=== PATIENT | male | born 1940 | race Caucasian/White ===

== ENCOUNTER 2020-02-02 03:21 | Outpatient (CLI) | payer MEDICARE, SELFPAY ==
[2020-02-02 18:37] LABS: SARS-CoV-2 RNA PCR Negative
== END 2020-02-02 03:22 | disposition home or self-care (01) ==
LOC: ANHCOVIDDT 03:38
PROVIDERS: PCP Internal Medicine; Visit Provider Internal Medicine Gastroenterology
DX: Z01.812 Encounter for preprocedural laboratory examination (principal); Z20.828 Contact with and (suspected) exposure to other viral communicable diseases
CPT/HCPCS: 87635; C9803; U0003

== ENCOUNTER 2020-02-04 00:38 | Day surgery (SDC) | payer MEDICARE, SELFPAY ==
[2020-01-25 14:46] VITALS: BMI 29.9
[2020-02-04 06:27] VITALS: BP 148/84; PULSE 45; RESP 16; TEMP 36.2; O2SAT 95
[2020-02-04] MEDS: LACTATED RINGERS 1,000 ML 150 ML IV CONT (06:40)
--- NOTE | 2020-02-04 07:15 | PM.HPGS ---
History of Present Illness History of Present Illness Consent: Risks, benefits, and alternatives have been discussed and questions answered. Patient agrees to proceed with procedure. Chief complaint: hx of polyps, family hx colon CA Narrative: Rei Lee is a 79 year old W male Referred for screening colonoscopy secondary to a personal history of multiple colonic polyps and a family history of colon cancer in his brother diagnosed less than age 60. Last colonoscopy was 3 years ago patient is asymptomatic. Meds Home Medications and Allergies Home Medications Medication Instructions Recorded Confirmed Type allopurinol 100 mg PO DAILY 01/25/20 01/25/20 History aspirin [Aspirin Low Dose] 81 mg PO DAILY 01/25/20 01/25/20 History levothyroxine 150 mcg PO DAILY 01/25/20 02/04/20 History meloxicam 7.5 mg PO DAILY 01/25/20 01/25/20 History omeprazole magnesium [Prilosec OTC] 20 mg PO DAILY 01/25/20 01/25/20 History simvastatin 10 mg PO DAILY 01/25/20 01/25/20 History tamsulosin [Flomax] 0.4 mg PO BID 01/25/20 01/25/20 History triamterene-hydrochlorothiazid 1 tablet PO QAM 01/25/20 01/25/20 History vitamins A,C,N-xbby-eomdgi 2 tablet PO BID 01/25/20 01/25/20 History [PreserVision AREDS] Allergies Allergy/AdvReac Type Severity Reaction Status Date / Time Sulfa (Sulfonamide Allergy Unknown Rash Verified 02/04/20 06:26 Antibiotics) tetracycline Allergy Unknown Rash Verified 02/04/20 06:26 nitrofurantoin Allergy Other Verified 02/04/20 06:26 Vital Signs Vital Signs - 24 hr 02/04/20 06:27 Temperature 36.2 C L Pulse Rate 45 L Respiratory Rate 16 Blood Pressure 148/84 H Pulse Oximetry 95 Exam Const: Orientation/consciousness: patient oriented x3 Resp: Auscultation: clear to auscultation bilaterally Cardio: Rate: regular rate Rhythm: regular rhythm Heart sounds: no murmurs GI: GI Palp: Yes Soft to palpation, No Tenderness to palpation present (GI), Yes No hepatosplenomegaly present and No Palpable mass present Auscultation: normal bowel sounds Neuro: General: patient oriented x3 and no focal motor deficits Extrem: General: no pedal edema Assessment and Plan Additional Plan Screening colonoscopy in high risk patient secondary to family history of colon cancer in a brother and a personal history of polyps
--- NOTE | 2020-02-04 07:17 | WPDANESEPPF ---
Anes - Initial Pre Proc Eval Procedure: Operation Date: 02/04/20 07:30 Proposed Procedures p Screening Colonoscopy - Jef Lala MD Date/Time: 02/04/20 07:17 Surgeon: Jef Lala MD Pre Op Diagnosis: hx of polyps, family hx colon CA Patient Data Age: 79 Gender: M Height: 6 ft Weight: 97 kg Last Vital Signs Temp 97.1 F L 02/04/20 06:27 Pulse 45 L 02/04/20 06:27 Resp 16 02/04/20 06:27 BP 148/84 H 02/04/20 06:27 Pulse Ox 95 02/04/20 06:27 Allergies Allergy/AdvReac Type Severity Reaction Status Date / Time Sulfa (Sulfonamide Allergy Unknown Rash Verified 02/04/20 06:26 Antibiotics) tetracycline Allergy Unknown Rash Verified 02/04/20 06:26 nitrofurantoin Allergy Other Verified 02/04/20 06:26 Home Medications Medication Instructions Recorded Confirmed Type allopurinol 100 mg PO DAILY 01/25/20 01/25/20 History aspirin [Aspirin Low Dose] 81 mg PO DAILY 01/25/20 01/25/20 History levothyroxine 150 mcg PO DAILY 01/25/20 02/04/20 History meloxicam 7.5 mg PO DAILY 01/25/20 01/25/20 History omeprazole magnesium [Prilosec OTC] 20 mg PO DAILY 01/25/20 01/25/20 History simvastatin 10 mg PO DAILY 01/25/20 01/25/20 History tamsulosin [Flomax] 0.4 mg PO BID 01/25/20 01/25/20 History triamterene-hydrochlorothiazid 1 tablet PO QAM 01/25/20 01/25/20 History vitamins A,C,U-ezwq-ulzuoy 2 tablet PO BID 01/25/20 01/25/20 History [PreserVision AREDS] Patient hx anesthesia problems: none Family hx anesthesia problems: none PMFSH Past Medical History Medical History (Updated 02/04/20 @ 07:17 by Erasto Wilson MD) H/O prostate cancer Hyperlipidemia Hypertension Anes - Eval Final PreProcedure Day of Procedure 02/04/20 07:17 Patient weight: overweight Heart: regular rate and rhythm Lungs: clear to auscultation Airway: Mallampati scale class II Neurological: alert and oriented Last oral intake: >/= 8 hours ASA classification: III Emergent: no Anesthetic plan: proceed Anesthesia type and monitoring: general GIVS and standard monitoring Informed Consent: The patient's anesthetic plan and its attendant risks and benefits were discussed with the patient/family/POA. Questions were solicited and answers provided to the satisfaction of the patient/family/POA.
[2020-02-04 07:59] VITALS: BP 94/62; PULSE 84; RESP 16; O2SAT 94
[2020-02-04 08:09] VITALS: BP 95/60; PULSE 81; RESP 16; O2SAT 93
[2020-02-04 08:19] VITALS: BP 118/74; PULSE 89; RESP 15; O2SAT 96
== END 2020-02-04 08:25 | disposition home or self-care (01) ==
PROVIDERS: PCP Internal Medicine; Visit Provider Internal Medicine Gastroenterology
PROC: 0DJD8ZZ Inspection of Lower Intestinal Tract, Via Natural or Artificial Opening Endoscopic (ICD-10-PCS; CPT 45378; principal; 2020-02-04 07:30)
DX: Z12.11 Encounter for screening for malignant neoplasm of colon (principal); D12.3 Benign neoplasm of transverse colon; K63.5 Polyp of colon; K57.30 Diverticulosis of large intestine without perforation or abscess without bleeding; K64.8 Other hemorrhoids; Z80.0 Family history of malignant neoplasm of digestive organs; I10 Essential (primary) hypertension; E78.5 Hyperlipidemia, unspecified; Z85.46 Personal history of malignant neoplasm of prostate; Z79.82 Long term (current) use of aspirin
CPT/HCPCS: 45385; 88305; J2370; J2704; J7120

== ENCOUNTER 2022-04-18 12:42 | Inpatient (IN) | payer MEDICARE, SELFPAY ==
[2022-04-18] VITALS (25 sets, daily range): BP systolic 116–141; BP diastolic 77–107; PULSE 92–119; RESP 14–20; TEMP 36.4; O2SAT 83–98; BMI 27.3; BMI 27.5
--- NOTE | ~2022-04-18 | XR_ITS ---
EXAMINATION: XR abdomen/kub 1V DATE: 04/20/2022 06:01 INDICATION: Small bowel obstruction. TECHNIQUE: A supine view of the abdomen on 2 radiographs was obtained. COMPARISON: CT abdomen and pelvis 04/18/2022 FINDINGS: There is a dilated loop of small bowel in right abdomen. The colon is decompressed. There i s a small volume of stool in the colon. The nasogastric tube tip is in the stomach. IMPRESSION: 1. Dilated small bowel in right abdomen, consistent with small bowel obstruction. Reviewed, dictated and finalized at location A. IFIED LOW VISION THERAPIST IMPRESSION: 1. Dilated small bowel in right abdomen, consistent with small bowel obstructio n.
--- NOTE | ~2022-04-18 | XR_ITS ---
EXAMINATION: XR sm bowel follow through WS DATE: 04/20/2022 10:22 INDICATION: Small bowel obstruction. TECHNIQUE: Oral contrast was administered, and a time course of radiographs of the abdomen was obtain ed. Fluoroscopy of the small bowel was not performed. Fluoroscopy exposure time was 0 minutes. The to ismael number of images was 6. COMPARISON: CT abdomen and pelvis 04/18/2022 FINDINGS: The nasogastric tube tip is in the stomach. There are dilated loops of jejunum. The ileum is normal i n caliber. Transit time from the stomach to proximal colon was approximately 1 hour and 45 minutes. T here are brachytherapy seeds in the prostate. IMPRESSION: 1. Dilated jejunum with normal transit time of contrast to the colon, consistent with adynamic ileus versus partial small bowel obstruction. Reviewed, dictated and finalized at location A. RONMENTAL PLANNING ENGINEER IMPRESSION: 1. Dilated jejunum with normal transit time of contrast to the colon, consisten t with adynamic ileus versus partial small bowel obstruction.
--- NOTE | ~2022-04-18 | CT_ITS ---
EXAMINATION: CT abdomen pelvis w con DATE: 04/18/2022 16:35 INDICATION: Left lower quadrant abdominal pain, nausea and vomiting, constipation. Leukocytosis. TECHNIQUE: Computed tomography (CT) of the abdomen and pelvis was performed with 100 CC Omnipaque 350 intravenous contrast. Automated exposure control and iterative reconstruction technique were employe d. Exam dose: 1093.19 mGy-cm total exam DLP. COMPARISON: None. FINDINGS: Mild bilateral lower lobe and right upper lobe dependent atelectasis. Ascending aortic aneurysm measures up to 4.3 cm diameter. Normal heart size. Prominent coronary artery calcifications. Prominent calcified mediastinal nodes. No hilar or mediastinal mass lesion or lymphadenopathy is evid ent. There are multiple small stones in the dependent aspect of the gallbladder. No gallbladder wall thick ening or pericholecystic fluid or fat stranding. No bile duct or pancreatic duct dilatation. No hepatic, pancreatic or splenic, adrenal space-occupying mass lesion. There are multiple bilateral renal cysts. Approximately 3.5 mm nonobstructing right renal calculus Urinary tract calculus or hydroureteronephrosis. Prostate enlargement and multiple prostate calcifications. There is moderate diffuse thickening of th e urinary bladder wall which may be secondary to prostate enlargement. The stomach is distended with fluid. There multiple small bowel segments with fluid distention and air-fluid levels, with a transition poi nt in the central pelvic area (series 3 image 164). There is mild free fluid in the lower pelvis. Normal appendix. Mild colonic diverticulosis. No CT evidence of diverticulitis. Severe degenerative disease of the lumbar and lumbosacral spine. Bilateral hip osteoarthritis, particularly severe on the left IMPRESSION: Small bowel obstruction with transition point in the central pelvis Small free fluid collection in the lower pelvis Normal appendix Bilateral renal cysts 3.5 mm nonobstructing right renal calculus Prostate enlargement and calcifications Cholelithiasis Reviewed, dictated and finalized at Location A. Reviewed, dictated and finalized at location A. PALLETIZER IMPRESSION: Small bowel obstruction with transition point in the central pelvi s Small free fluid collection in the lower pelvis Normal appendix Bilateral renal cysts 3.5 mm nonobstructing right renal calculus Prostate enlargement and calcifications Cholelithiasis
--- NOTE | ~2022-04-18 | XR_ITS ---
EXAMINATION: XR abdomen NG/feed tube insert INDICATION: Nasogastric tube placement TECHNIQUE: Portable AP KUB-NG at 1802 hours COMPARISON: None available FINDINGS: The nasogastric tube is in the stomach. Contrast from earlier CT partially opacifies the ur inary tract. There are mildly distended loops of small bowel in the midabdomen. There is severe lumba r spondylosis. IMPRESSION: 1. Nasogastric tube in the stomach. 2. Small bowel obstruction. Reviewed, dictated and finalized at location F. ER HELPER
--- NOTE | ~2022-04-18 | XR_ITS ---
EXAMINATION: XR abdomen obstructive series DATE: 04/19/2022 05:55 INDICATION: Small bowel obstruction. TECHNIQUE: Upright and supine views of the abdomen on 4 radiographs were obtained. COMPARISON: CT abdomen and pelvis 04/18/2022 FINDINGS: There are no dilated loops of bowel. There is a small volume of stool in the colon. No free intraperitoneal gas. The nasogastric tube tip is in the stomach. There are brachytherapy seeds in th e prostate. IMPRESSION: 1. Nonobstructive bowel gas pattern. Reviewed, dictated and finalized at location A. L MARKETING EXECUTIVE
[2022-04-18 13:06] LABS: Basophils Absolute Auto 0.1 K/mm3 (0.0-0.1); Basophils Percent Auto 0.5 % (0.2-1.2); Eosinophils Absolute Auto 0.1 K/mm3 (0-0.3); Eosinophils Percent Auto 0.7 % (0-4.4); Hematocrit 52.7 % (42.0-52.0); Hemoglobin 18.3 g/dL (14.0-18.0); Immature Granulocyte Absolute 0.14 K/mm3 (0.00-0.031); Lymphocytes Absolute Auto 0.91 K/mm3 (0.9-3.2); Lymphocytes Percent Auto 6.5 % (18.3-44.2); Mean Corpuscular HGB Conc 34.7 g/dl (32-36); Mean Corpuscular Hemoglobin 31.8 pg (26-34); Mean Corpuscular Volume 91.7 fl (80-100); Mean Platelet Volume 10.2 fl (7.4-10.4); Neutrophils Absolute Auto 11.9 K/mm3 (1.3-6.7); Neutrophils Percent Auto 84.3 % (45.5-73.1); Platelet Count Result 146 k/mm3 (150-375); Red Blood Count 5.75 M/mm3 (4.6-6.20); Red Cell Distribution Width 13.6 % (11.5-14.5); White Blood Count 14.1 K/mm3 (4.5-10.0)
[2022-04-18 13:21] LABS: Alanine Aminotransferase 28 U/L (6-50); Albumin Level 4.5 g/dL (3.5-5.1); Alkaline Phosphatase 62 U/L (38-126); Anion Gap 12 mmol/L (8-16); Aspartate Amino Transferase 24 U/L (17-59); Bilirubin,Total 1.5 mg/dL (0.2-1.3); Blood Urea Nitrogen 22 mg/dL (9-20); Calcium 9.9 mg/dL (8.4-10.2); Carbon Dioxide 29 mmol/L (22-30); Chloride 95 mmol/L (98-107); Estimated CRCL calculation 53 ml/min; Estimated Glomerular Filt Rate > 60; Glucose 201 mg/dL (65-110); Lipase 48 U/L (23-300); Potassium 3.9 mmol/L (3.4-5.0); Sodium 136 mmol/L (137-145)
[2022-04-18 14:39] LABS: Appearance Urine Clear (Clear); Bilirubin Urine 1+ (Negative); Blood Urine Negative (Negative); Color Urine Yellow (Yellow); Glucose Urine UA Negative (Negative); Ketones Urine 1+ mg/dL (Negative); Leukocyte Esterase Ur Negative LEU/UL (Negative); Nitrate Urine Negative (Negative); Protein Urine 2+ mg/dL (Negative); Specific Grav Ur >= 1.030 (1.001-1.035); Urobilinogen Urine 0.2 mg/dL (<2.0)
[2022-04-18 15:01] LABS: Bacteria Urine Trace /hpf; Mucus Urine Moderate /lpf; WBC Urine 21-30 /hpf
[2022-04-18 15:03] LABS: Add Urine Microscopic? YES
--- NOTE | 2022-04-18 15:56 | ED.ABDPAIN ---
HPI - Abdominal Pain General Chief Complaint: Abdominal Pain <NAOMI Hollingsworth Last Filed: 04/18/22 19:28> Stated Complaint: abd pain x3 days <NAOMI Hollingsworth Last Filed: 04/18/22 19:28> Time Seen by Provider: 04/18/22 14:48 <NAOMI Hollingsworth Last Filed: 04/18/22 19:28> Source: patient <NAOMI Hollingsworth Last Filed: 04/18/22 19:28> Mode of arrival: ambulatory <NAOMI Hollingsworth Last Filed: 04/18/22 19:28> Limitations: no limitations <NAOMI Hollingsworth Last Filed: 04/18/22 19:28> History of Present Illness HPI narrative: Patient is a 81 y/o male who presents to the ED with c/o abdominal pain. Patient reports having diffuse pain across his abdomen for the past several days. He notes he has been constipated for the past 4 days. Last BM Saturday. Today, he developed worsening pain and nausea and vomiting, which prompted his presentation. He has not taken anything for pain today. He has not tried any laxatives or bowel regimen. He denies any fevers. Denies hematemesis. Denies dysuria, hematuria. Patient has been taking Cipro for the last 2 days for sinus infection. He notes he tested positive for COVID-19 2 weeks ago. <NAOMI Hollingsworth Last Filed: 04/18/22 19:28> Related Data Home Medications: Home Medications Medication Instructions Recorded Confirmed allopurinol 100 mg tablet 100 mg PO DAILY 01/25/20 01/25/20 aspirin 81 mg tablet,delayed 81 mg PO DAILY 01/25/20 01/25/20 release (Jose Antonio Low Dose Aspirin) levothyroxine 150 mcg tablet 150 mcg PO DAILY 01/25/20 02/04/20 meloxicam 7.5 mg tablet 7.5 mg PO DAILY 01/25/20 01/25/20 omeprazole magnesium 20 mg 20 mg PO DAILY 01/25/20 01/25/20 tablet,delayed release (Prilosec OTC) simvastatin 10 mg tablet 10 mg PO DAILY 01/25/20 01/25/20 tamsulosin 0.4 mg capsule (Flomax) 0.4 mg PO BID 01/25/20 01/25/20 triamterene 37.5 1 tablet PO QAM 01/25/20 01/25/20 mg-hydrochlorothiazide 25 mg tablet vitamins A,C,K-imhi-dnxzpd 2,148 2 tablet PO BID 01/25/20 01/25/20 mcg-113 mg-45 mg-17.4 mg tablet (PreserVision AREDS) <Valarie Franklin PA-C - Last Filed: 04/18/22 19:28> Allergies/Adverse Reactions: Allergies Allergy/AdvReac Type Severity Reaction Status Date / Time Sulfa (Sulfonamide Allergy Unknown Rash Verified 04/18/22 15:18 Antibiotics) tetracycline Allergy Unknown Rash Verified 04/18/22 15:18 <Valarie Franklin PA-C - Last Filed: 04/18/22 19:28> Review of Systems Review of Systems: CONSTITUTIONAL: Denies fever, chills, or sweats. CARDIOVASCULAR: Denies chest pain. RESPIRATORY: Denies dyspnea. GASTROINTESTINAL: Reports diffuse abdominal pain, nausea, vomiting, constipation. Denies diarrhea, constipation. GENITOURINARY: Denies dysuria or hematuria. <Valarie Franklin PA-C - Last Filed: 04/18/22 19:28> All systems reviewed & are unremarkable except as noted in HPI and below <Valarie Franklin PA-C - Last Filed: 04/18/22 19:28> [facility] Past Medical History Medical History: Medical History (Updated 04/18/22 @ 18:07 by Valarie Franklin PA-C) Diverticulitis GERD (gastroesophageal reflux disease) Gout H/O prostate cancer Hyperlipidemia Hypertension <Valarie Franklin PA-C - Last Filed: 04/18/22 19:28> Surgical History Surgical History: Surgical History (Updated 04/18/22 @ 17:28 by Valarie Franklin PA-C) History of colectomy History of thyroidectomy <Valarie Franklin PA-C - Last Filed: 04/18/22 19:28> Social History Social History: Social History (Updated 04/18/22 @ 17:29 by Valarie Franklin PA-C) Smoking status: Never smoker <Valarie Franklin PA-C - Last Filed: 04/18/22 19:28> Exam Narrative: GENERAL: Well appearing, well-nourished, non-toxic, in no acute distress. HEAD: Normocephalic, atraumatic. NECK: Supple. No adenopathy, no masses. RESPIRAT
--- NOTE | 2022-04-18 16:14 | ECG_ITS ---
Measurements Intervals [place] Rate: 102 P: 9 WV: 156 QRS: -5 QRSD: 113 T: 57 QT: 372 QTc: 486 Interpretive Statements SINUS TACHYCARDIA FREQUENT VENTRICULAR PREMATURE COMPLEXES DELAYED PRECORDIAL R/S TRANSITION NONSPECIFIC ST & T-WAVE ABNORMALITY- DIFFUSE LEADS BASELINE ARTIFACT- I, II, III, AVR, AVL, AVF, V3 ABNORMAL ECG NO PREVIOUS ECG AVAILABLE FOR COMPARISON Electronically Signed On 04-18-2022 17:29:00 BUSINESS SUPERVISOR by Lyndon Reyes D.O.
[2022-04-18] MEDS: MORPHINE SULFATE (*CRX) 4 MG/ML INJ IV PUSH (16:15)
[2022-04-18] MEDS: ONDANSETRON INJ 4 MG/2 ML VIAL IV PUSH (16:16)
[2022-04-18] MEDS: SODIUM CHLORIDE 0.9% IV 1,000 ML 999 ML IV CONT (16:16)
[2022-04-18 17:58] LABS: Lactic Acid Reflex 1.5 mmol/L (0.7-2.0)
--- NOTE | 2022-04-18 18:45 | PM.IMHP ---
H&P: HPI History of Present Illness Date/Time: 04/18/22 18:45 Chief Complaint: Abdominal pain. Narrative: This is a very pleasant 81-year-old male with history of hypertension, hyperlipidemia, benign prostatic hyperplasia, hypothyroidism, kidney stones, colon polyps, and history of diverticulitis status post partial colectomy who presented to the emergency department from home for evaluation of abdominal pain. He had COVID a couple of weeks ago while he and his for in [place] putting there winter home on the market. A couple of days ago they drove home and he was having some diffuse, mild abdominal discomfort at that time and he remarks that he has not had a good bowel movement for about 4 days. Yesterday while on packing he was feeling a bit nauseated so he took some Pepcid though that did not help. Last night he slept poorly due to the discomfort and this morning his pain became severe associated with sweats and nausea. He induced vomiting multiple times which seemed to improve the pain only for a small period of time before returned. CT of the abdomen and pelvis today showed evidence of a small-bowel obstruction and an NG tube has since been inserted which yielded almost 1 liter of yellow/brown fluid. He is feeling a bit better at this time. He did have part of his colon removed due to diverticulitis over 20 years ago though he has never had a bowel obstruction in the past. Colon cancer runs in the family and he has a history of colon polyps and he is compliant with colonoscopy screening at frequent intervals. His weight has remained stable and he has not noticed any blood in his stools. Review of Systems Review of Systems: Twelve systems were reviewed. He had COVID a couple of weeks ago though symptoms have resolved. He denies chest pain shortness a breath. No cough. He has not had a bowel movement for about 4 days. He gets up 1 to 2 times a night to urinate. He remarks that his stream is slower than when he was young man however he has not noticed any change in that for years. He denies concerns for urinary retention. He has not been experiencing dysuria. Except as documented, all other systems were reviewed and are negative. [facility] Past Medical History Medical History (Updated 04/18/22 @ 23:58 by Yolie Kim PA-C) Acquired hypothyroidism Benign prostatic hyperplasia Diverticulitis Gastroesophageal reflux disease Hyperlipidemia Hypertension Left leg DVT Following surgery in 2001. 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 Prostate cancer Status post radiation. Psoriasis Rhinosinusitis Uric acid nephrolithiasis Surgical History Surgical History (Updated 04/18/22 @ 23:53 by Yolie Kim PA-C) History of Mohs micrographic surgery for skin cancer (2009) Excision of melanoma of the right forearm. History of partial colectomy (2001) For diverticulitis. History of sinus surgery History of total thyroidectomy (2010) For benign nodules. Family History Family History (Updated 04/18/22 @ 23:54 by Yolie Kim PA-C) Father Congestive heart failure Mother Bone cancer Sibling , at age 54. Colon cancer Sibling Breast cancer Social History Social History (Updated 04/18/22 @ 23:55 by Yolie Kim PA-C) Social History: Surrogate medical decision maker: Love Lee, spouse. Code status: Full code. Smoking status: Former smoker Alcohol intake: never Substance use: never Substance use type: does not use Lack of Transportation: No Lack of Food: Never True Current Housing: I Have Housing Concerned About Future Housing: No Difficulty Paying Gas/Electric Bills: No Difficulty Paying for Meds: No Currently Unemployed: No Education: Decline to Answer Difficulty w/ Childcare or Family Care: No Additional living arrangements comments: The patient lives with his in [place]. Additional occ
[2022-04-18 19:53] LABS: Influenza A QL RT-PCR Negative (Negative); Influenza B QL RT-PCR Negative (Negative); SARS-CoV-2 RNA PCR Positive
--- NOTE | 2022-04-18 20:44 | PC.NURSE ---
report received from Chasidy hussein RN.
[2022-04-18] MEDS: SODIUM CHLORIDE 0.9% IV 1,000 ML 100 ML IV CONT (21:09)
[2022-04-19] MEDS: diphenhydrAMINE HCl INJ 50 MG/ML VIAL 12.5 MG IV PUSH (02:56)
[2022-04-19] MEDS: LEVOTHYROXINE SODIUM INJ 100 MCG/5 ML VIAL 75 MCG IV PUSH (05:17)
--- NOTE | 2022-04-19 05:18 | ADMGEN ---
This patient, Rei Lee, was admitted to 3 [facility] Surg Room 312-01. Patient/family oriented to hospital policies and general routines including ID bracelet, bed and alarms, visiting hours, pain management, procedures, bathroom and other care routines, personal items, smoking policy, room service/diet, and visiting hours. Information on how to activate the Rapid Response Team has been discussed. Patient/Family are encouraged to report perceived risks to care and to ask questions if they do not understand what they are told or what they should do. Pt arrived at [id number] report received from Chasidy ED RN 's cell phone [phone]
--- NOTE | 2022-04-19 05:19 | PC.NURSE ---
Addendum entered by Sheela Mcneal RN 04/19/22 05:20: error Original Note: 's cell phone [phone]
--- NOTE | 2022-04-19 05:20 | PC.NURSE ---
wifes cell phone [phone]
[2022-04-19 06:00] VITALS: BP 122/77; PULSE 79; RESP 18; TEMP 37; O2SAT 95
--- NOTE | 2022-04-19 06:33 | PC.NURSE ---
ng 250 out this shift noc
[2022-04-19 07:02] LABS: Hematocrit 46.5 % (42.0-52.0); Hemoglobin 15.9 g/dL (14.0-18.0); Mean Corpuscular HGB Conc 34.2 g/dl (32-36); Mean Corpuscular Hemoglobin 32.2 pg (26-34); Mean Corpuscular Volume 94.1 fl (80-100); Mean Platelet Volume 10.6 fl (7.4-10.4); Platelet Count Result 140 k/mm3 (150-375); Red Blood Count 4.94 M/mm3 (4.6-6.20); Red Cell Distribution Width 13.7 % (11.5-14.5); White Blood Count 8.6 K/mm3 (4.5-10.0)
[2022-04-19 07:12] LABS: Alanine Aminotransferase 22 U/L (6-50); Albumin Level 3.7 g/dL (3.5-5.1); Alkaline Phosphatase 40 U/L (38-126); Anion Gap 12 mmol/L (8-16); Aspartate Amino Transferase 24 U/L (17-59); Bilirubin,Total 1.1 mg/dL (0.2-1.3); Blood Urea Nitrogen 25 mg/dL (9-20); Calcium 8.7 mg/dL (8.4-10.2); Carbon Dioxide 28 mmol/L (22-30); Chloride 98 mmol/L (98-107); Estimated CRCL calculation 53 ml/min; Estimated Glomerular Filt Rate > 60; Glucose 127 mg/dL (65-110); Magnesium 1.7 mg/dL (1.6-2.3); Potassium 3.8 mmol/L (3.4-5.0); Sodium 138 mmol/L (137-145)
[2022-04-19] MEDS: SODIUM CHLORIDE 0.9% IV 1,000 ML 100 ML IV CONT ×2 (09:54→20:22)
[2022-04-19] MEDS: PANTOPRAZOLE SODIUM IV 40 MG VIAL IV PUSH ×2 (09:54→20:22)
--- NOTE | 2022-04-19 10:44 | PM.IMPN ---
Progress Note: A&P Assessment and Plan (1) Small bowel obstruction: Code(s): K56.609 - Unspecified intestinal obstruction, unspecified as to partial versus complete obstruction Status: Acute Assessment and Plan: He was found to have a small-bowel obstruction with transition point in the central pelvis. Possibly related to adhesions from prior partial colectomy for diverticulitis years ago. NG tube has been inserted for decompression and he will be on bowel rest. Surgery has been consulted for their opinion. Analgesics and antiemetics available as needed. (2) Abnormal urinalysis: Code(s): R82.90 - Unspecified abnormal findings in urine Status: Acute Assessment and Plan: He has been started on ceftriaxone, pending urine culture. (3) Dehydration: Code(s): E86.0 - Dehydration Status: Acute Assessment and Plan: Continue judicious IV fluid rehydration with close monitoring of volume status. (4) Benign prostatic hyperplasia: Code(s): N40.0 - Benign prostatic hyperplasia without lower urinary tract symptoms Status: Acute Assessment and Plan: Prostate was noted to be enlarged with calcifications on CT today. He is status post radiation therapy for prostate cancer several years ago. He continues to have issues with nocturia, 1 to 2 times a night. Resume tamsulosin when tolerating p.o.. (5) Hypertension: Code(s): I10 - Essential (primary) hypertension Status: Acute Assessment and Plan: Blood pressures were reviewed and they have been reasonable. Monitor closely as antihypertensives are on hold given NPO status. (6) Uric acid nephrolithiasis: Code(s): N20.0 - Calculus of kidney Status: Acute Assessment and Plan: Resume allopurinol when tolerating p.o.. (7) Acquired hypothyroidism: Code(s): E03.9 - Hypothyroidism, unspecified Status: Acute Assessment and Plan: He will continue to receive levothyroxine in IV form. (8) Gastroesophageal reflux disease: Code(s): K21.9 - Gastro-esophageal reflux disease without esophagitis Status: Acute Assessment and Plan: Change omeprazole to IV Protonix while NPO. Subjective Date/time seen: 04/19/22 10:[address] Abdominal pain improved Exam Const: Other: Mildly ill-appearing gentleman in the semi-Padgett position in bed. Weight: 92 kilograms. BMI: 27.5. HENMT: Other: Normocephalic, atraumatic. NG tube in the left naris draining opaque yellow/brown fluid with scattered cream color particulate matter. Tacky mucous membranes. Eyes: Other: Pupils are reactive. Extraocular motions intact. Sclerae anicteric. Neck: Other: Supple. Resp: Other: Respirations are nonlabored. Lungs are clear to auscultation bilaterally. Cardio: Other: Regular rate rhythm with normal S1-S2. GI: Other: Abdomen is soft and a bit distended. Quiet bowel sounds. He is tender to palpation percussion throughout the abdomen but more so on the right side. No guarding or rebound tenderness. Skin: Other: Warm and dry. No rash or lesion on limited exam. Neuro: Other: Alert. Cranial nerves 2-12 are grossly intact. No gross focal deficits to casual conversation. Extrem: Other: No cyanosis, clubbing, or edema. Left leg is bigger when compared to the right which is chronic following DVT many years ago. Peripheral pulses intact. Psych: Other: Pleasant and cooperative. Appropriate mood and affect. Objective Data Vital Signs Vital Signs: Vital Signs - 24 hr 04/18/22 12:50 04/18/22 15:21 04/18/22 15:17 Temperature 97.6 F Pulse Rate 100 113 H 114 H Respiratory Rate 18 16 20 Blood Pressure 141/83 H 130/97 H 130/97 H Pulse Oximetry 97 93 97 Oxygen Delivery Room Air 04/18/22 15:19 04/18/22 15:30 04/18/22 15:32 Temperature Pulse Rate 113 H 115 H 119 H Respiratory Rate 18 18 17 Blood Pressure 132/95
[2022-04-19 14:00] VITALS: BP 124/85; PULSE 83; RESP 16; TEMP 36.4; O2SAT 99
--- NOTE | 2022-04-19 17:04 | PM.CNGS ---
Assessment and Plan Assessment and plan (1) Small bowel obstruction: Code(s): K56.609 - Unspecified intestinal obstruction, unspecified as to partial versus complete obstruction Status: Acute Assessment and Plan: Improving symptomatically as well as by imaging. He still has some tenderness in the right lower quadrant. Continue NG suction today. Recheck plain films tomorrow and exam as well as labs. Possibly go ahead with small-bowel series tomorrow. Thank you for asking me to see this patient in consultation. I will follow along with you. (2) History of colectomy: Code(s): Z90.49 - Acquired absence of other specified parts of digestive tract Status: Chronic Assessment and Plan: History sigmoidectomy for diverticulitis 21 years ago. History of Present Illness Consult details Consult date: 04/19/22 Reason for consult: abdominal pain (Small bowel obstruction) Requesting physician: Walter Espinal MD Narrative: Patient is a 81-year-old man who had a sigmoidectomy just over 20 years ago for diverticular disease. He and his drove back from [place] on Saturday and Saturday and then on Saturday he started experiencing diffuse abdominal pain. He has also had sweats and nausea. He came to the emergency room yesterday and evaluation there included a CT scan which showed small-bowel obstruction with a transition point in the pelvis. He had a nasogastric tube placed in apparently 2 full canisters drained almost immediately. He has been admitted and nasogastric tube is still in place. His pain is much better but not gone. He is seen now in consultation regarding small-bowel obstruction. He has never had a small bowel obstruction previously. He is also noticing some dysuria and some blood in his urine. Urinalysis in the ER was suspicious for UTI. Review of Systems Review of Systems: All systems reviewed & are unremarkable except as noted in HPI and below (HPI and those items noted below) Constitutional: Constitutional: Denies chills and Denies fever(s) Cardiovascular: Cardiovascular: Denies chest pain, Denies diaphoresis, Denies dyspnea and Denies paroxysmal nocturnal dyspnea Respiratory: Respiratory: Denies chest congestion, Denies cough and Denies dyspnea Integumentary/Breasts: Skin/Breast: Denies lesions and Denies rash PMFSH Past Medical History Medical History Acquired hypothyroidism Benign prostatic hyperplasia Diverticulitis Gastroesophageal reflux disease Hyperlipidemia Hypertension Left leg DVT Following surgery in 2001. 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 Prostate cancer Status post radiation. Psoriasis Rhinosinusitis Uric acid nephrolithiasis Surgical History Surgical History History of Mohs micrographic surgery for skin cancer (2009) Excision of melanoma of the right forearm. History of partial colectomy (2001) For diverticulitis. History of sinus surgery History of total thyroidectomy (2010) For benign nodules. Family History Family History Father Congestive heart failure Mother Bone cancer Sibling , at age 54. Colon cancer Sibling Breast cancer Social History Social History Social History: Surrogate medical decision maker: Love Lee, spouse. Code status: Full code. Smoking status: Former smoker Alcohol intake: never Substance use: never Substance use type: does not use Lack of Transportation: No Lack of Food: Never True Current Housing: I Have Housing Concerned About Future Housing: No Difficulty Paying Gas/Electric Bills: No Difficulty Paying for Meds: No Currently Unemployed: No Education: Decline to Answer Difficulty w/ Childcare
[2022-04-19 19:44] VITALS: O2SAT 97
[2022-04-19 22:57] VITALS: BP 123/85; PULSE 82; RESP 16; TEMP 36.2; O2SAT 94
--- NOTE | 2022-04-20 05:30 | PC.NURSE ---
650 ml NG output this shift
[2022-04-20] MEDS: LEVOTHYROXINE SODIUM INJ 100 MCG/5 ML VIAL 75 MCG IV PUSH (05:34)
[2022-04-20 06:00] VITALS: BP 150/90; PULSE 69; RESP 18; TEMP 36.4; O2SAT 96
[2022-04-20] MEDS: SODIUM CHLORIDE 0.9% IV 1,000 ML 100 ML IV CONT ×2 (06:14→16:03)
--- NOTE | 2022-04-20 07:26 | PM.PNGS ---
Progress Note: A&P Assessment and Plan (1) Small bowel obstruction: Code(s): K56.609 - Unspecified intestinal obstruction, unspecified as to partial versus complete obstruction Status: Acute Assessment and Plan: definitely improved. Will go ahead and get Gastrografin small-bowel follow-through today. I explained the test to the patient. Hopefully this will pass through with relatively normal transit. If so can DC NG and start some liquids. (2) Abnormal urinalysis: Code(s): R82.90 - Unspecified abnormal findings in urine Status: Acute Assessment and Plan: Urine culture negative. Can stop try ceftriaxone from my perspective. Subjective Subjective Date/Time Seen: 04/20/22 07:26 Patient reports: feels better, pain is less, flatus and no bowel movement Review of Systems Review of Systems: All systems reviewed & are unremarkable except as noted in HPI and below ( HPI) Constitutional: Constitutional: Denies chills and Denies fever(s) Cardiovascular: Cardiovascular: Denies chest pain, Denies diaphoresis, Denies dyspnea, Denies paroxysmal nocturnal dyspnea and Reports other ( mild discomfort upper abdomen lower chest, no sharp pain no shortness of b) Respiratory: Respiratory: Denies chest congestion, Denies cough and Denies dyspnea Integumentary/Breasts: Skin/Breast: Denies lesions and Denies rash Exam Const: General: comfortable and no acute distress; No confusion Orientation/consciousness: patient oriented x3 and No confusion Chest: Chest palpation & inspection: normal palpation of entire chest wall, no crepitus and no localized rib tenderness Resp: Effort & Inspection: normal respiratory effort Auscultation: clear to auscultation bilaterally Cardio: Rate: regular rate Rhythm: regular rhythm GI: Inspection: non-distended and scar GI Palp: Yes Soft to palpation, No Tenderness to palpation present (GI) ( Right lower quadrant tenderness gone today.), No Guarding due to palpation present (GI) and No Rebound tenderness present Auscultation: Hypoactive bowel sounds present Neuro: General: patient oriented x3, no focal motor deficits and No confusion Extrem: General: no calf tenderness and no edema Psych: Affect: normal affect Insight: Good insight present (Psych) Judgement: Good judgement present (Psych) Objective Data Vital Signs Vital Signs: Vital Signs - 24 hr 04/19/22 08:35 04/19/22 14:00 04/19/22 19:44 Temperature 36.4 C L Pulse Rate 83 Respiratory Rate 16 Blood Pressure 124/85 Pulse Oximetry 99 97 Oxygen Delivery Room Air Room Air 04/19/22 22:57 Temperature 36.2 C L Pulse Rate 82 Respiratory Rate 16 Blood Pressure 123/85 Pulse Oximetry 94 Oxygen Delivery Intake/Output Intake/Output: Intake & Output 04/17/22 04/18/22 04/19/22 04/20/22 23:59 23:59 23:59 23:59 Intake Total 1000 2200 1050 Output Total 950 Balance 1000 1250 1050 Meds/Results Medications: Active Medications Generic Name Dose Route Start Last Admin Trade Name Freq PRN Reason Stop Dose Admin Sodium Chloride 1,000 mls @ 100 mls/hr 04/18/22 18:10 04/20/22 06:14 Normal Saline Iv IV CONT 100 mls/hr .Q10H ALEKSANDER Administration Ceftriaxone Sodium/Dextrose 1 gm in 50 mls @ 100 mls/hr 04/19/22 01:00 04/20/22 01:00 Rocephin 1 Gm/D5w 50 Ml IVPB Infused Q24H ALEKSANDER Infusion Levothyroxine Sodium 75 mcg 04/19/22 06:30 04/20/22 05:34 Levothyroxine Sodium Inj 100 Mcg/5 Ml Vial IV PUSH 75 mcg DAILY@0630 ALEKSANDER Administration Morphine Sulfate 2 mg 04/19/22 00:02 Morphine Sulfate (*Crx) 4 Mg/Ml Inj IV PUSH Q4H PRN Pain Rated 7-10 Ondansetron HCl 4 mg 04/18/22 18:07 Ondansetron Inj 4 Mg/2 Ml Vial IV PUSH Q4H PRN Nausea Pantoprazole Sodium 40 mg 04/19/22 09:00 04/19/22 20:22 Pantoprazole Sodium Iv 40 Mg Vial IV PUSH 40 mg Q12HR ALEKSANDER Administration Radiology Results: ITS Impressions Abdomen/Pel
[2022-04-20 07:51] LABS: Basophils Absolute Auto 0.1 K/mm3 (0.0-0.1); Basophils Percent Auto 0.8 % (0.2-1.2); Eosinophils Absolute Auto 0.2 K/mm3 (0-0.3); Eosinophils Percent Auto 3.1 % (0-4.4); Hematocrit 44.7 % (42.0-52.0); Hemoglobin 15.2 g/dL (14.0-18.0); Immature Granulocyte Absolute 0.06 K/mm3 (0.00-0.031); Immature Granulocyte Percent A 0.8 % (0-0.5); Lymphocytes Absolute Auto 0.75 K/mm3 (0.9-3.2); Lymphocytes Percent Auto 9.8 % (18.3-44.2); Mean Corpuscular Hemoglobin 31.6 pg (26-34); Mean Corpuscular Volume 92.9 fl (80-100); Mean Platelet Volume 10.3 fl (7.4-10.4); Monocytes Absolute Auto 0.8 K/mm3 (0.1-0.6); Neutrophils Absolute Auto 5.7 K/mm3 (1.3-6.7); Neutrophils Percent Auto 74.5 % (45.5-73.1); Platelet Count Result 115 k/mm3 (150-375); Red Blood Count 4.81 M/mm3 (4.6-6.20); Red Cell Distribution Width 13.9 % (11.5-14.5); White Blood Count 7.6 K/mm3 (4.5-10.0)
[2022-04-20 08:04] LABS: Anion Gap 11 mmol/L (8-16); Blood Urea Nitrogen 23 mg/dL (9-20); Calcium 8.1 mg/dL (8.4-10.2); Carbon Dioxide 26 mmol/L (22-30); Chloride 102 mmol/L (98-107); Estimated CRCL calculation 58 ml/min; Estimated Glomerular Filt Rate > 60; Glucose 86 mg/dL (65-110); Potassium 3.3 mmol/L (3.4-5.0); Sodium 139 mmol/L (137-145)
[2022-04-20] MEDS: PANTOPRAZOLE SODIUM IV 40 MG VIAL IV PUSH (09:16)
[2022-04-20] MEDS: ENOXAPARIN 40 MG/0.4 ML SYRINGE SUB-Q (09:21)
--- NOTE | 2022-04-20 11:26 | PM.IMPN ---
Progress Note: A&P Assessment and Plan (1) Small bowel obstruction: Code(s): K56.609 - Unspecified intestinal obstruction, unspecified as to partial versus complete obstruction Status: Acute Assessment and Plan: NG tube in place. Small-bowel follow-through pending feels better, pain control. DC antibiotics (2) Abnormal urinalysis: Code(s): R82.90 - Unspecified abnormal findings in urine Status: Acute Assessment and Plan: culture negative DC antibiotics (3) Dehydration: Code(s): E86.0 - Dehydration Status: Acute Assessment and Plan: Continue judicious IV fluid rehydration with close monitoring of volume status. (4) Benign prostatic hyperplasia: Code(s): N40.0 - Benign prostatic hyperplasia without lower urinary tract symptoms Status: Acute Assessment and Plan: Prostate was noted to be enlarged with calcifications on CT today. He is status post radiation therapy for prostate cancer several years ago. He continues to have issues with nocturia, 1 to 2 times a night. Resume tamsulosin when tolerating p.o.. (5) Hypertension: Code(s): I10 - Essential (primary) hypertension Status: Acute Assessment and Plan: Blood pressures were reviewed and they have been reasonable. Monitor closely as antihypertensives are on hold given NPO status. (6) Uric acid nephrolithiasis: Code(s): N20.0 - Calculus of kidney Status: Acute Assessment and Plan: Resume allopurinol when tolerating p.o.. (7) Acquired hypothyroidism: Code(s): E03.9 - Hypothyroidism, unspecified Status: Acute Assessment and Plan: He will continue to receive levothyroxine in IV form. (8) Gastroesophageal reflux disease: Code(s): K21.9 - Gastro-esophageal reflux disease without esophagitis Status: Acute Assessment and Plan: Change omeprazole to IV Protonix while NPO. Subjective Date/time seen: 04/20/22 11:26 no new complaints Exam Const: Other: Mildly ill-appearing gentleman in the semi-Padgett position in bed. Weight: 92 kilograms. BMI: 27.5. HENMT: Other: Normocephalic, atraumatic. NG tube in the left naris draining opaque yellow/brown fluid with scattered cream color particulate matter. Tacky mucous membranes. Eyes: Other: Pupils are reactive. Extraocular motions intact. Sclerae anicteric. Neck: Other: Supple. Resp: Other: Respirations are nonlabored. Lungs are clear to auscultation bilaterally. Cardio: Other: Regular rate rhythm with normal S1-S2. GI: Other: Abdomen is soft and a bit distended. Quiet bowel sounds. He is tender to palpation percussion throughout the abdomen but more so on the right side. No guarding or rebound tenderness. Skin: Other: Warm and dry. No rash or lesion on limited exam. Neuro: Other: Alert. Cranial nerves 2-12 are grossly intact. No gross focal deficits to casual conversation. Extrem: Other: No cyanosis, clubbing, or edema. Left leg is bigger when compared to the right which is chronic following DVT many years ago. Peripheral pulses intact. Psych: Other: Pleasant and cooperative. Appropriate mood and affect. Objective Data Vital Signs Vital Signs: Vital Signs - 24 hr 04/19/22 14:00 04/19/22 19:44 04/19/22 22:57 Temperature 97.5 F L 97.2 F L Pulse Rate 83 82 Respiratory Rate 16 16 Blood Pressure 124/85 123/85 Pulse Oximetry 99 97 94 Oxygen Delivery Room Air 04/20/22 06:00 Temperature 97.6 F Pulse Rate 69 Respiratory Rate 18 Blood Pressure 150/90 H Pulse Oximetry 96 Oxygen Delivery Intake/Output Intake/Output: Intake & Output 04/17/22 04/18/22 04/19/22 04/20/22 23:59 23:59 23:59 23:59 Intake Total 1000 2200 1050 Output Total 950 Balance 1000 1250 1050 Meds/Results Medications: Active Medications Generic Name Dose Route Start Last Admin Trade Name Freq PRN Reason
[2022-04-20 14:00] VITALS: BP 122/85; PULSE 90; RESP 16; TEMP 36.6; O2SAT 96
[2022-04-20] MEDS: KCL 40 MEQ/D5/0.9% SOD CHL 1,000 ML 60 ML IV CONT (18:28)
[2022-04-20] MEDS: TAMSULOSIN HCL 0.4 MG CAPSULE PO (18:29)
[2022-04-20] MEDS: allopurinoL 100 MG TABLET PO (18:29)
[2022-04-20] MEDS: POTASSIUM CHLORIDE 20 MEQ TABLET.ER PO (18:29)
[2022-04-20] MEDS: ACETAMINOPHEN 500 MG TABLET PO (21:42)
[2022-04-20] MEDS: diphenhydrAMINE HCl CAP 25 MG CAPSULE PO (21:42)
[2022-04-20 22:00] VITALS: BP 131/76; PULSE 79; RESP 18; TEMP 36.9; O2SAT 96
[2022-04-21 06:00] VITALS: BP 120/85; PULSE 60; RESP 20; TEMP 36.2; O2SAT 96
[2022-04-21 06:58] LABS: Basophils Absolute Auto 0.1 K/mm3 (0.0-0.1); Basophils Percent Auto 1.1 % (0.2-1.2); Eosinophils Absolute Auto 0.3 K/mm3 (0-0.3); Eosinophils Percent Auto 5.3 % (0-4.4); Hematocrit 42.6 % (42.0-52.0); Hemoglobin 14.4 g/dL (14.0-18.0); Immature Granulocyte Absolute 0.06 K/mm3 (0.00-0.031); Immature Granulocyte Percent A 1.1 % (0-0.5); Immature Platelet Fraction Pct 2.6 % (0.9-11.2); Lymphocytes Absolute Auto 0.79 K/mm3 (0.9-3.2); Lymphocytes Percent Auto 14.4 % (18.3-44.2); Mean Corpuscular HGB Conc 33.8 g/dl (32-36); Mean Corpuscular Hemoglobin 32.4 pg (26-34); Mean Corpuscular Volume 95.7 fl (80-100); Mean Platelet Volume 9.7 fl (7.4-10.4); Monocytes Absolute Auto 0.7 K/mm3 (0.1-0.6); Monocytes Percent Auto 12.2 % (2.6-8.5); Neutrophils Absolute Auto 3.6 K/mm3 (1.3-6.7); Neutrophils Percent Auto 65.9 % (45.5-73.1); Platelet Count Result 120 k/mm3 (150-375); Red Blood Count 4.45 M/mm3 (4.6-6.20); Red Cell Distribution Width 13.8 % (11.5-14.5); White Blood Count 5.5 K/mm3 (4.5-10.0)
[2022-04-21] MEDS: LEVOTHYROXINE SODIUM 150 MCG TABLET PO (06:58)
[2022-04-21 07:09] LABS: Anion Gap 6 mmol/L (8-16); Blood Urea Nitrogen 20 mg/dL (9-20); Calcium 7.9 mg/dL (8.4-10.2); Carbon Dioxide 26 mmol/L (22-30); Chloride 107 mmol/L (98-107); Estimated CRCL calculation 58 ml/min; Estimated Glomerular Filt Rate > 60; Glucose 134 mg/dL (65-110); Potassium 4.1 mmol/L (3.4-5.0); Sodium 139 mmol/L (137-145)
[2022-04-21] MEDS: allopurinoL 100 MG TABLET PO (08:40)
[2022-04-21] MEDS: TAMSULOSIN HCL 0.4 MG CAPSULE PO (08:40)
[2022-04-21] MEDS: TRIAMTERENE 37.5 MG/HCTZ 25 MG (MAXZIDE) TABLET 1 TAB PO (08:40)
[2022-04-21] MEDS: POTASSIUM CHLORIDE 20 MEQ TABLET.ER PO (08:41)
[2022-04-21] MEDS: ENOXAPARIN 40 MG/0.4 ML SYRINGE SUB-Q (08:41)
[2022-04-21] MEDS: MELOXICAM 7.5 MG TABLET PO (08:42)
[2022-04-21] MEDS: PANTOPRAZOLE 40 MG TABLET PO (08:42)
--- NOTE | 2022-04-21 11:39 | PM.DS ---
DS: Admitting Diagnosis Discharge Date April 21, 2022 Admitting Diagnosis small-bowel obstruction DS: Discharge Diagnosis Discharge Diagnosis (1) Small bowel obstruction: Code(s): K56.609 - Unspecified intestinal obstruction, unspecified as to partial versus complete obstruction Status: Acute Assessment and Plan: resolved (2) Abnormal urinalysis: Code(s): R82.90 - Unspecified abnormal findings in urine Status: Acute Assessment and Plan: culture negative DC antibiotics (3) Dehydration: Code(s): E86.0 - Dehydration Status: Acute Assessment and Plan: Continue judicious IV fluid rehydration with close monitoring of volume status. (4) Benign prostatic hyperplasia: Code(s): N40.0 - Benign prostatic hyperplasia without lower urinary tract symptoms Status: Acute Assessment and Plan: Prostate was noted to be enlarged with calcifications on CT today. He is status post radiation therapy for prostate cancer several years ago. He continues to have issues with nocturia, 1 to 2 times a night. Resume tamsulosin when tolerating p.o.. (5) Hypertension: Code(s): I10 - Essential (primary) hypertension Status: Acute Assessment and Plan: Blood pressures were reviewed and they have been reasonable. Monitor closely as antihypertensives are on hold given NPO status. (6) Uric acid nephrolithiasis: Code(s): N20.0 - Calculus of kidney Status: Acute Assessment and Plan: Resume allopurinol when tolerating p.o.. (7) Acquired hypothyroidism: Code(s): E03.9 - Hypothyroidism, unspecified Status: Acute Assessment and Plan: He will continue to receive levothyroxine in IV form. (8) Gastroesophageal reflux disease: Code(s): K21.9 - Gastro-esophageal reflux disease without esophagitis Status: Acute Assessment and Plan: Change omeprazole to IV Protonix while NPO. DS: Summary Hospital Course Hospital Course: patient is a 81-year-old gentleman history of abdominal surgeries. He came in with nausea vomiting and abdominal cramping. Was found have small-bowel obstruction on imaging. He had an NG tube placed and was treated conservatively. NG tube was pulled yesterday and has been tolerating liquid diet and has been advanced to soft diet in appears to be eating just fine. He is also passing gas and having bowel movements. Repeat small-bowel follow-through showed that he no longer had no obstruction. Again he is tolerating diet he can be discharged and he will follow up with surgery as an outpatient Time Spent with Patient Time attestation: Total time spent providing and/or coordinating discharge services: Exam Const: Other: Mildly ill-appearing gentleman in the semi-Padgett position in bed. Weight: 92 kilograms. BMI: 27.5. HENMT: Other: Normocephalic, atraumatic. NG tube in the left naris draining opaque yellow/brown fluid with scattered cream color particulate matter. Tacky mucous membranes. Eyes: Other: Pupils are reactive. Extraocular motions intact. Sclerae anicteric. Neck: Other: Supple. Resp: Other: Respirations are nonlabored. Lungs are clear to auscultation bilaterally. Cardio: Other: Regular rate rhythm with normal S1-S2. GI: Other: Abdomen is soft and a bit distended. Quiet bowel sounds. He is tender to palpation percussion throughout the abdomen but more so on the right side. No guarding or rebound tenderness. Skin: Other: Warm and dry. No rash or lesion on limited exam. Neuro: Other: Alert. Cranial nerves 2-12 are grossly intact. No gross focal deficits to casual conversation. Extrem: Other: No cyanosis, clubbing, or edema. Left leg is bigger when compared to the right which is chronic following DVT many years ago. Peripheral pulses intact. Psych: Other: Pleasant and cooperative. Appropriate mood and affect. DS: Data
--- NOTE | 2022-04-21 12:05 | PM.PNGS ---
Progress Note: A&P Assessment and Plan (1) Small bowel obstruction: Code(s): K56.609 - Unspecified intestinal obstruction, unspecified as to partial versus complete obstruction Status: Acute Assessment and Plan: Bowel obstruction resolved. Advancing diet to low-fiber diet for lunch. Okay to discharge this afternoon if tolerating diet. Discussed staying on a soft diet for 1-2 weeks after discharge. Return to ED for recurrent symptoms. Follow-up with Dr. Herrera as needed. Subjective Subjective Date/Time Seen: 04/21/22 12:05 Interval history: tolerating liquid diet. Ordered a low-fiber diet for lunch. Bowels moving. No bloating or nausea. No abdominal pain. Exam GI: Inspection: non-distended GI Palp: Yes Soft to palpation, No Tenderness to palpation present (GI), No Guarding due to palpation present (GI) and No Rebound tenderness present Percussion: Yes normal to percussion Auscultation: normal bowel sounds Objective Data Vital Signs Vital Signs: Vital Signs - 24 hr 04/20/22 14:00 04/20/22 22:00 04/21/22 06:00 Temperature 36.6 C 36.9 C 36.2 C L Pulse Rate 90 79 60 Respiratory Rate 16 18 20 Blood Pressure 122/85 131/76 120/85 Pulse Oximetry 96 96 96 Oxygen Delivery 04/21/22 08:40 Temperature Pulse Rate Respiratory Rate Blood Pressure Pulse Oximetry Oxygen Delivery Room Air Intake/Output Intake/Output: Intake & Output 04/18/22 04/19/22 04/20/22 04/21/22 23:59 23:59 23:59 23:59 Intake Total 1000 2200 3400 200 Output Total 950 300 400 Balance 1000 1250 3100 -200 Meds/Results Medications: Active Medications Generic Name Dose Route Start Last Admin Trade Name Freq PRN Reason Stop Dose Admin Acetaminophen 500 mg 04/20/22 21:00 04/20/22 21:42 Acetaminophen 500 Mg Tablet PO 500 mg HS ALEKSANDER Administration Allopurinol 100 mg 04/20/22 17:00 04/21/22 08:40 Allopurinol 100 Mg Tablet PO 100 mg BID ALEKSANDER Administration Diphenhydramine HCl 25 mg 04/20/22 21:00 04/20/22 21:42 Diphenhydramine Hcl Cap 25 Mg Capsule PO 25 mg HS ALEKSANDER Administration Enoxaparin Sodium 40 mg 04/20/22 09:00 04/21/22 08:41 Enoxaparin 40 Mg/0.4 Ml Syringe SUB-Q 40 mg DAILY ALEKSANDER Administration Levothyroxine Sodium 150 mcg 04/21/22 06:30 04/21/22 06:58 Levothyroxine Sodium 150 Mcg Tablet PO 150 mcg DAILY@0630 ALEKSANDER Administration Meloxicam 7.5 mg 04/21/22 09:00 04/21/22 08:42 Meloxicam 7.5 Mg Tablet PO 7.5 mg DAILY ALEKSANDER Administration Morphine Sulfate 2 mg 04/19/22 00:02 Morphine Sulfate (*Crx) 4 Mg/Ml Inj IV PUSH Q4H PRN Pain Rated 7-10 Ondansetron HCl 4 mg 04/18/22 18:07 Ondansetron Inj 4 Mg/2 Ml Vial IV PUSH Q4H PRN Nausea Pantoprazole Sodium 40 mg 04/21/22 09:00 04/21/22 08:42 Pantoprazole 40 Mg Tablet PO 40 mg QAM ALEKSANDER Administration Potassium Chloride 20 meq 04/20/22 17:00 04/21/22 08:41 Potassium Chloride 20 Meq Tablet.Er PO 20 meq BIDWM ALEKSANDER Administration Tamsulosin HCl 0.4 mg 04/20/22 17:00 04/21/22 08:40 Tamsulosin Hcl 0.4 Mg Capsule PO 0.4 mg BID ALEKSANDER Administration Triamterene/Hydrochlorothiazide 1 tab 04/21/22 09:00 04/21/22 08:40 Triamterene 37.5 Mg/Hctz 25 Mg (Maxzide) Tablet PO 1 tab QAM ALEKSANDER Administration Radiology Results: ITS Impressions Abdomen/Pelvis CT 04/18/22 16:48 IMPRESSION: Small bowel obstruction with transition point in the central pelvis Small free fluid collection in the lower pelvis Normal appendix Bilateral renal cysts 3.5 mm nonobstructing right renal calculus Prostate enlargement and calcifications Cholelithiasis Abdomen X-Ray 04/20/22 06:55 IMPRESSION: 1. Dilated small bowel in right abdomen, consistent with small bowel obstruction. Small Bowel X-Ray 04/20/22 10:25 IMPRESSION: 1. Dilated jejunum with normal transit time of contrast to the colon, consistent with adynamic ileus versus par
== END 2022-04-21 14:05 | disposition home or self-care (01) | DRG 388 ==
LOC: ANHED 18:07 → ANH3MEDSUR 20:25
PROVIDERS: Physician Assistant; Admitting Provider Chiropractor; Emergency Provider Emergency Medicine; PCP Internal Medicine; Visit Provider Chiropractor
DX: K56.609 Unspecified intestinal obstruction, unspecified as to partial versus complete obstruction (principal); U07.1 COVID-19; R82.90 Unspecified abnormal findings in urine; E86.0 Dehydration; N40.1 Benign prostatic hyperplasia with lower urinary tract symptoms; R35.1 Nocturia; I10 Essential (primary) hypertension; N20.0 Calculus of kidney; E89.0 Postprocedural hypothyroidism; E78.5 Hyperlipidemia, unspecified; K21.9 Gastro-esophageal reflux disease without esophagitis; Z79.899 Other long term (current) drug therapy; Z85.46 Personal history of malignant neoplasm of prostate; Z86.718 Personal history of other venous thrombosis and embolism; Z87.891 Personal history of nicotine dependence; Z90.49 Acquired absence of other specified parts of digestive tract
CPT/HCPCS: 36415; 74018; 74019; 74177; 74250; 80048; 80053; 81001; 83605; 83690; 83735; 84443; 85025; 85027; 85055; 87086; 87636; 93005; 96361; 96374; 96375; 99285; A9270; C9113; J0131; J0696; J1200; J1650; J2270; J2405; J3480; J7030; Q9967

== ENCOUNTER 2024-03-06 09:51 | Emergency (ER) | payer MEDICARE, SELFPAY ==
[2024-03-06 10:06] VITALS: BP 122/76; PULSE 75; RESP 16; TEMP 36.4; O2SAT 100
--- NOTE | 2024-03-06 10:06 | ED.SKABFB ---
HPI - Skin/Abscess/Foreign Bdy General Chief complaint: Skin/Abscess/Foreign Body Stated complaint: surgical wound check Time Seen by Provider: 03/06/24 10:35 Source: patient, RN notes reviewed and old records reviewed Mode of arrival: ambulatory Limitations: no limitations History of Present Illness HPI narrative: patient presents with complaints of complication to surgical wound on left leg. He reports that he had squamous cell skin cancer removed 10 days ago at a dermatology office, sutures dehisced yesterday. He has had foul-smelling drainage since. Denies any fever, chills, sweats. Reports that the leg is very painful to walk on. He does have some swelling to the affected leg, reports this is chronic secondary to DVTs 20 years ago postop. Patient reports that he frequently develops infections after surgical procedures. Denies all injury and trauma, voices no other concerns or complaints today Related Data Home Medications Medication Instructions Recorded Confirmed allopurinol 100 mg tablet 100 mg PO BID 01/25/20 03/06/24 levothyroxine 150 mcg tablet 150 mcg PO DAILY 01/25/20 03/06/24 omeprazole magnesium 20 mg 20 mg PO DAILY 01/25/20 03/06/24 tablet,delayed release (Prilosec OTC) tamsulosin 0.4 mg capsule (Flomax) 0.4 mg PO BID 01/25/20 03/06/24 vitamins A,C,W-vfcn-pigljw 2,148 2 tablet PO BID 01/25/20 03/06/24 mcg-113 mg-45 mg-17.4 mg tablet (PreserVision AREDS) diphenhydramine 25 1 tablet PO HS 04/18/22 03/06/24 mg-acetaminophen 500 mg tablet (Tylenol PM Extra Strength) fluticasone propionate 50 1 spray intranasal DAILY 04/18/22 03/06/24 mcg/actuation nasal spray,suspension amiodarone 200 mg tablet 200 mg PO DAILY 03/06/24 03/06/24 atorvastatin 40 mg tablet 40 mg PO DAILY 03/06/24 03/06/24 carvedilol 6.25 mg tablet 3.25 mg PO DAILY 03/06/24 03/06/24 sacubitril 24 mg-valsartan 26 mg 0.5 tablet PO DAILY 03/06/24 03/06/24 tablet (Entresto) spironolactone 25 mg tablet 25 mg PO DAILY 03/06/24 03/06/24 Allergies Allergy/AdvReac Type Severity Reaction Status Date / Time Sulfa (Sulfonamide Allergy Unknown Rash Verified 03/06/24 11:13 Antibiotics) tetracycline Allergy Unknown Rash Verified 03/06/24 11:13 Review of Systems Review of Systems: All systems reviewed & are unremarkable except as noted in HPI and below Constitutional: Constitutional: Reports no additional constitutional complaints ENT: Reports system reviewed and no additional complaints, except as documented Cardiovascular: Cardiovascular: Reports no additional cardiovascular complaints Respiratory: Respiratory: Reports no additional respiratory complaints Gastrointestinal: Gastrointestinal: Reports no additional gastrointestinal complaints Integumentary/Breasts: Skin/Breast: Reports system reviewed and no additional complaints, except as docu and Reports as per HPI [facility] Past Medical History Medical History Acquired hypothyroidism Benign prostatic hyperplasia Diverticulitis Gastroesophageal reflux disease Hyperlipidemia Hypertension Left leg DVT Following surgery in 2001. 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 Prostate cancer Status post radiation. Psoriasis Rhinosinusitis Uric acid nephrolithiasis Surgical History Surgical History History of Mohs micrographic surgery for skin cancer (2009) Excision of melanoma of the right forearm. History of partial colectomy (2001) For diverticulitis. History of sinus surgery History of total thyroidectomy (2010) For benign nodules. Family History Family History Father Congestive heart failure Mother Bone cancer Sibling , at age 54. Colon cancer Sibling Breast cancer Social History Social History (Reviewed 03/06/24 @ 10:11
== END 2024-03-06 10:36 | disposition short-term general hospital (02) ==
PROVIDERS: Emergency Provider Nurse Practitioner Family; PCP Internal Medicine
DX: T81.49XA Infection following a procedure, other surgical site, initial encounter (principal); Z85.828 Personal history of other malignant neoplasm of skin; N40.0 Benign prostatic hyperplasia without lower urinary tract symptoms; K21.9 Gastro-esophageal reflux disease without esophagitis; E78.5 Hyperlipidemia, unspecified; I10 Essential (primary) hypertension; M48.061 Spinal stenosis, lumbar region without neurogenic claudication; E89.0 Postprocedural hypothyroidism; Z86.718 Personal history of other venous thrombosis and embolism; Z85.820 Personal history of malignant melanoma of skin; Z85.46 Personal history of malignant neoplasm of prostate; Z87.891 Personal history of nicotine dependence
CPT/HCPCS: 99212; G0463

== ENCOUNTER 2024-03-06 11:09 | Emergency (ER) | payer MEDICARE, SELFPAY ==
--- NOTE | ~2024-03-06 | XR_ITS ---
EXAMINATION: XR tibia fibula LT 2V DATE: 03/06/2024 12:09 INDICATION: Leg wound dehiscence at the left calf TECHNIQUE: Anteroposterior and lateral views of the left tibia and fibula were obtained on overlappin g proximal and distal images. COMPARISON: None. FINDINGS: Bone alignment is normal. No fracture. Small marginal osteophytes along the patella consistent with a t least mild patellofemoral osteoarthritis. No cortical erosions or periosteal reaction. No left knee or ankle joint effusion. Focal small lucency in the subcutaneous fat at the posterolateral left calf centered approximately 15 cm distal to the knee joint line likely representing the site of the repor noemi leg wound. There is no other more remote gas or evident gas within the deeper muscular compartmen ts of the calf. IMPRESSION: 1. Small region of subcutaneous gas at the posterolateral left calf likely at the site of the reporte d leg wound. No more remote soft tissue gas or gas within the deeper muscular compartment to elevate suspicion for necrotizing fasciitis which is ultimately a clinical diagnosis. Reviewed, dictated and finalized at location A. IMPRESSION: 1. Small region of subcutaneous gas at the posterolateral left calf likely at t he site of the reported leg wound. No more remote soft tissue gas or gas within the deeper muscular compartment to elevate suspicion for necrotizing fasciitis which is ultimately a clinical diagnosis.
[2024-03-06 11:13] VITALS: PULSE 76; RESP 18; TEMP 36.1; O2SAT 99
[2024-03-06 12:11] LABS: Basophils Absolute Auto 0.1 K/mm3 (0.0-0.1); Basophils Percent Auto 1.3 % (0.2-1.2); Eosinophils Absolute Auto 0.3 K/mm3 (0-0.3); Hemoglobin 15.3 g/dL (14.0-18.0); Immature Granulocyte Absolute 0.13 K/mm3 (0.00-0.031); Immature Granulocyte Percent A 1.7 % (0-0.5); Lymphocytes Absolute Auto 0.96 K/mm3 (0.9-3.2); Lymphocytes Percent Auto 12.7 % (18.3-44.2); Mean Corpuscular Hemoglobin 32.3 pg (26-34); Mean Corpuscular Volume 95.1 fl (80-100); Mean Platelet Volume 10.6 fl (7.4-10.4); Monocytes Absolute Auto 0.8 K/mm3 (0.1-0.6); Monocytes Percent Auto 10.8 % (2.6-8.5); Neutrophils Absolute Auto 5.3 K/mm3 (1.3-6.7); Neutrophils Percent Auto 69.5 % (45.5-73.1); Platelet Count Result 148 k/mm3 (150-375); Red Blood Count 4.73 M/mm3 (4.6-6.20); Red Cell Distribution Width 13.6 % (11.5-14.5); White Blood Count 7.6 K/mm3 (4.5-10.0)
[2024-03-06 12:19] LABS: Prothrombin Time 13.7 Seconds (11.1-14.7)
[2024-03-06 12:20] LABS: Partial Thromboplastin Time 29.6 Seconds (22.3-36.8)
[2024-03-06 12:24] LABS: Lactic Acid Reflex 2.1 mmol/L (0.7-2.0)
[2024-03-06 12:27] LABS: Alanine Aminotransferase 22 U/L (6-50); Albumin Level 4.1 g/dL (3.5-5.1); Alkaline Phosphatase 61 U/L (38-126); Anion Gap 10 mmol/L (4-12); Aspartate Amino Transferase 22 U/L (17-59); Blood Urea Nitrogen 21 mg/dL (9-20); CRP < 0.5 mg/dL (<1.0); Calcium 8.8 mg/dL (8.4-10.2); Carbon Dioxide 23 mmol/L (22-30); Chloride 104 mmol/L (98-107); Estimated CRCL calculation 56 ml/min; Estimated Glomerular Filt Rate > 60; Glucose 157 mg/dL (65-110); Potassium 4.3 mmol/L (3.4-5.0); Sodium 137 mmol/L (137-145)
[2024-03-06] MEDS: CLINDAMYCIN 900 MG/D5W 50 ML 900 MG/50 ML PIGGYBACK 50 MG IVPB (12:32)
[2024-03-06] MEDS: MEROPENEM 1 GM/NS 100 ML 1 GM/100 ML BAG IVPB (12:33)
--- NOTE | 2024-03-06 13:30 | ED.SKABFB ---
HPI - Skin/Abscess/Foreign Bdy General Chief complaint: Skin/Abscess/Foreign Body Stated complaint: left lower leg wound Time Seen by Provider: 03/06/24 11:32 Source: patient Mode of arrival: ambulatory Limitations: no limitations History of Present Illness HPI narrative: This is an 83-year-old male, with history of squamous cell carcinoma of the skin and previous wound infections, who presents to the emergency department complaining of a painful wound at the back of the left leg. The patient states last week, he had a squamous cell carcinoma removed at a dermatology clinic. In the past day, the wound has opened and is very sore (8/10 with walking and it 3/10 at rest). He denies associated fevers, chills or spreading leg pain. He has no other complaints at this time. Related Data Home Medications Medication Instructions Recorded Confirmed allopurinol 100 mg tablet 100 mg PO BID 01/25/20 03/06/24 levothyroxine 150 mcg tablet 150 mcg PO DAILY 01/25/20 03/06/24 omeprazole magnesium 20 mg 20 mg PO DAILY 01/25/20 03/06/24 tablet,delayed release (Prilosec OTC) tamsulosin 0.4 mg capsule (Flomax) 0.4 mg PO BID 01/25/20 03/06/24 vitamins A,C,M-qdez-tkwcmx 2,148 2 tablet PO BID 01/25/20 03/06/24 mcg-113 mg-45 mg-17.4 mg tablet (PreserVision AREDS) diphenhydramine 25 1 tablet PO HS 04/18/22 03/06/24 mg-acetaminophen 500 mg tablet (Tylenol PM Extra Strength) fluticasone propionate 50 1 spray intranasal DAILY 04/18/22 03/06/24 mcg/actuation nasal spray,suspension amiodarone 200 mg tablet 200 mg PO DAILY 03/06/24 03/06/24 atorvastatin 40 mg tablet 40 mg PO DAILY 03/06/24 03/06/24 carvedilol 6.25 mg tablet 3.25 mg PO DAILY 03/06/24 03/06/24 sacubitril 24 mg-valsartan 26 mg 0.5 tablet PO DAILY 03/06/24 03/06/24 tablet (Entresto) spironolactone 25 mg tablet 25 mg PO DAILY 03/06/24 03/06/24 Allergies Allergy/AdvReac Type Severity Reaction Status Date / Time Sulfa (Sulfonamide Allergy Unknown Rash Verified 03/06/24 11:13 Antibiotics) tetracycline Allergy Unknown Rash Verified 03/06/24 11:13 Review of Systems Review of Systems: All systems reviewed & are unremarkable except as noted in HPI and below PMFSH Past Medical History Medical History Acquired hypothyroidism Benign prostatic hyperplasia Diverticulitis Gastroesophageal reflux disease Hyperlipidemia Hypertension Left leg DVT Following surgery in 2001. 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 Prostate cancer Status post radiation. Psoriasis Rhinosinusitis Uric acid nephrolithiasis Surgical History Surgical History History of Mohs micrographic surgery for skin cancer (2009) Excision of melanoma of the right forearm. History of partial colectomy (2001) For diverticulitis. History of sinus surgery History of total thyroidectomy (2010) For benign nodules. Family History Family History Father Congestive heart failure Mother Bone cancer Sibling , at age 54. Colon cancer Sibling Breast cancer Social History Social History Social History: Surrogate medical decision maker: Love Lee, spouse. Code status: Full code. Smoking status: Former smoker Alcohol intake: never Substance use: never Substance use type: does not use Lack of Transportation: No Lack of Food: Never True Current Housing: I Have Housing Concerned About Future Housing: No Difficulty Paying Gas/Electric Bills: No Difficulty Paying for Meds: No Currently Unemployed: No Education: Decline to Answer Difficulty w/ Childcare or Family Care: No Additional living arrangements comments: The patient lives with his in [place]. Additional occupa
[2024-03-06] MEDS: VANCOMYCIN 1,250 MG/NS 250 ML 1,250 MG/250 ML BAG 166.67 MG IVPB ×2 (14:05→16:10)
[2024-03-06 15:04] LABS: Reflex Lactic Acid Yes or No Add Lactic
== END 2024-03-06 18:28 | disposition home or self-care (01) ==
PROVIDERS: Emergency Provider Preventive Medicine Aerospace Medicine; PCP Internal Medicine
DX: T81.31XA Disruption of external operation (surgical) wound, not elsewhere classified, initial encounter (principal); L76.82 Other postprocedural complications of skin and subcutaneous tissue; L03.116 Cellulitis of left lower limb; I10 Essential (primary) hypertension; E89.0 Postprocedural hypothyroidism; E78.5 Hyperlipidemia, unspecified; N40.0 Benign prostatic hyperplasia without lower urinary tract symptoms; K21.9 Gastro-esophageal reflux disease without esophagitis; L40.9 Psoriasis, unspecified; Z86.718 Personal history of other venous thrombosis and embolism; Z85.820 Personal history of malignant melanoma of skin; Z85.46 Personal history of malignant neoplasm of prostate; Z92.3 Personal history of irradiation; Z90.49 Acquired absence of other specified parts of digestive tract; Z87.891 Personal history of nicotine dependence; Z79.899 Other long term (current) drug therapy; Y84.8 Other medical procedures as the cause of abnormal reaction of the patient, or of later complication, without mention of misadventure at the time of the procedure
CPT/HCPCS: 15853; 36415; 73590; 80053; 83605; 85025; 85610; 85730; 86140; 87040; 87070; 87181; 87205; 99283; J2185; J3370

== ENCOUNTER 2024-07-19 12:39 | Emergency (ER) | payer MEDICARE, SELFPAY ==
--- NOTE | ~2024-07-19 | XR_ITS ---
HISTORY: rotator cuff injury/shoulder pain COMPARISON: None TECHNIQUE: 2 views of the right shoulder were performed. FINDINGS: No acute fracture. The glenohumeral and acromioclavicular joint space is maintained The visualized portion of the adjacent right lung is clear. The humeral head is well seated within the glenoid fossa. IMPRESSION: No acute fracture or anterior dislocation. Reviewed, dictated and finalized at location A. [facility]
--- NOTE | 2024-07-19 12:40 | ED_ITS ---
HPI - Extremity Injury (Upper) General Chief Complaint: Extremity Injury, Upper Stated Complaint: Injured Right Shoulder Time Seen by Provider: 07/19/24 12:40 Source: patient Mode of arrival: ambulatory Limitations: no limitations History of Present Illness HPI narrative: Rei is an 84-year-old male patient presenting to the clinic today with complaints of a right shoulder injury after falling. He reports he fell 2 weeks ago and injured his shoulder. Also reports he fell 1 week ago and reinjured his right shoulder. States he tripped/loss balance. States he does not have the best balance or mobility. Walks with a single-point cane. Denies hitting his head or any loss of conscious. Only concern today is the right shoulder pain. Related Data Home Medications ?Medication ?Instructions ?Recorded ?Confirmed ?Last Taken ?Type allopurinol 100 mg tablet 100 mg PO BID 01/25/20 07/19/24 04/18/22 08:00 History levothyroxine 150 mcg tablet 150 mcg PO DAILY 01/25/20 07/19/24 04/18/22 06:00 History 150 mcg omeprazole magnesium 20 mg 20 mg PO DAILY 01/25/20 07/19/24 Unknown History tablet,delayed release (Prilosec OTC) tamsulosin 0.4 mg capsule (Flomax) 0.4 mg PO BID 01/25/20 07/19/24 Unknown History vitamins A,C,H-pevv-icjjij 2,148 2 tablet PO BID 01/25/20 07/19/24 Unknown History mcg-113 mg-45 mg-17.4 mg tablet (PreserVision AREDS) diphenhydramine 25 1 tablet PO HS 04/18/22 07/19/24 Unknown History mg-acetaminophen 500 mg tablet (Tylenol PM Extra Strength) fluticasone propionate 50 1 spray intranasal DAILY 04/18/22 07/19/24 Unknown History mcg/actuation nasal spray,suspension amiodarone 200 mg tablet 200 mg PO DAILY 03/06/24 07/19/24 Unknown History atorvastatin 40 mg tablet 40 mg PO DAILY 03/06/24 07/19/24 Unknown History carvedilol 6.25 mg tablet 3.25 mg PO DAILY 03/06/24 07/19/24 Unknown History sacubitril 24 mg-valsartan 26 mg 0.5 tablet PO DAILY 03/06/24 07/19/24 Unknown History tablet (Entresto) Allergies Allergy/AdvReac Type Severity Reaction Status Date / Time Sulfa (Sulfonamide Allergy Unknown Rash Verified 07/19/24 12:45 Antibiotics) tetracycline Allergy Unknown Rash Verified 07/19/24 12:45 Review of Systems Review of Systems: Pertinent positives per HPI. Patient denies any fever, chills, rash, headache, visual changes, dizziness, cough, runny nose, sore throat, shortness of breath, chest pain, palpitations, nausea, vomiting, diarrhea, constipation, abdominal pain, or any urinary issues. [facility] Past Medical History Medical History Benign prostatic hyperplasia Lumbar spinal stenosis Psoriasis Left leg DVT Following surgery in 2001. Malignant melanoma of right forearm Status post Mohs excision. Acquired hypothyroidism Uric acid nephrolithiasis Gastroesophageal reflux disease Prostate cancer Status post radiation. Rhinosinusitis Diverticulitis Hypertension Hyperlipidemia Surgical History Surgical History History of sinus surgery History of Mohs micrographic surgery for skin cancer (2009) Excision of melanoma of the right forearm. History of partial colectomy (2001) For diverticulitis. History of total thyroidectomy (2010) For benign nodules. Family History Family History Father Congestive heart failure Mother Bone cancer Sibling , at age 54. Colon cancer Sibling Breast cancer Social History Social History Social History: Surrogate medical decision maker: Love Lee, spouse. Code status: Full code. Smoking status: Former smoker Alcohol intake: never Substance use: never Substance use type: does not use Lack of Transportation: No Lack of Food: Never True Current Housing: I Have Housing Concerned About Future Housing: No Difficulty Paying Gas/Electric Bills: No Difficulty Paying for Meds: No Currently Unemployed: No Education: Decline to Answer Difficulty w/ Childcare or Family Care: No Additional living arrangements comments: The patient lives with his in [place]. 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 Spiritual care concerns: No Comments At the time of my signature, I reviewed and agree with the nursing past medical, surgical, social, and family history. There is no relevant family history pertinent to the patient complaint. Exam Narrative: General: Well-developed, well nourished, in no apparent distress Head: Normocephalic, atraumatic. Cardio: Regular rate and rhythm, s1 and s2 normal, no murmur appreciated. Resp: Clear to auscultation bilaterally, no rhonchi, rales, wheezing or rubs. Musculoskeletal: No deformity, tender to palpation over the rotator cuff, unable to raise his arm above his head due to pain, has pain with posterior reach and cross-arm test, unable to resist empty can and full can test due to pain, negative drop-arm test, peripheral pulse strong, no edema, no cyanosis, walks with a single-point cane Course Course Emergency Course: Portions of this record may have been created with voice recognition software. Level of Care: Express Care Visit Vital Signs Vital signs: Vital Signs Temperature 36.0 C L 07/19/24 12:48 Pulse Rate 74 07/19/24 12:48 Respiratory Rate 16 07/19/24 12:48 Blood Pressure 127/84 07/19/24 12:48 Pulse Oximetry 100 07/19/24 12:48 Temperature 36.0 C L 07/19/24 12:48 Pulse Rate 74 07/19/24 12:48 Respiratory Rate 16 07/19/24 12:48 Blood Pressure 127/84 07/19/24 12:48 Pulse Oximetry 100 07/19/24 12:48 Vital signs reviewed MDM - Extremity Injury (Upper) MDM Narrative Medical decision making narrative: At the time of visit patient is resting comfortably on the exam table. Patient appears to be nontoxic. Diagnostics: X-ray of the right shoulder was performed. X-rays negative for any acute fracture or malalignment. Plan: I suspect patient has a right rotator cuff injury. X-ray was negative for any fracture or malalignment. Recommend follow-up with PCP or orthopedic provider to get MRI of the shoulder completed. Supportive measures were discussed with the patient and they voiced understanding discharge instructions and agrees to treatment plan. Return precautions reviewed Differential Diagnosis Differential diagnosis: Likely dislocation of shoulder, fracture of humerus, fracture of clavicle and other (Rotator cuff injury, rotator cuff tear, shoulder sprain) Imaging Data Radiologist's impression: ITS Impressions Shoulder X-Ray 07/19/24 13:35 IMPRESSION: No acute fracture or anterior dislocation. Discharge Plan Discharge Clinical Impression: Injury of tendon of right rotator cuff, Strain of right shoulder Patient Disposition: Home, Self-Care Condition: Stable Instructions: Antibiotic Form, Rotator Cuff Injury (ED), How to Use a Sling (ED) Additional Instructions: X-ray of the right shoulder is negative for any sign of fracture or malalignment. Rest, ice, elevate, and wear arm sling as directed Take your arm out of the sling 3 times a day and perform range of motion Tylenol/motrin for pain as discussed. May apply blue emu, lidocaine, or Aspercreme to the affected area to help alleviate pain Follow up with your PCP if symptoms persist more than 1 week. Patient Language: Citizen Of [place] Prescriptions: No Action atorvastatin 40 mg tablet 40 mg PO DAILY carvedilol 6.25 mg Tablet 3.25 mg PO DAILY Rx Instructions: must administer with a meal/food sacubitril-valsartan [Entresto] 24-26 mg tablet 0.5 tablet PO DAILY amiodarone 200 mg tablet 200 mg PO DAILY allopurinol 100 mg Tablet 100 mg PO BID tamsulosin [Flomax] 0.4 mg Capsule 0.4 mg PO BID levothyroxine 150 mcg Tablet 150 mcg PO DAILY omeprazole magnesium [Prilosec OTC] 20 mg Tablet,Delayed Release (Dr/Ec) 20 mg PO DAILY PreserVision AREDS [id number] Tablet 2 tablet PO BID fluticasone propionate 50 mcg/actuation spray,suspension 1 spray INTRANASAL DAILY diphenhydramine-acetaminophen [Tylenol PM Extra Strength] 25-500 mg Tablet 1 tablet PO HS gentamicin 0.1 % ointment 1 applic topical QID Qty: 30 2RF hydrocodone-acetaminophen 5-325 mg tablet 1 tablet PO Q12H PRN (Reason: pain, severe) Qty: 10 0RF Follow-up/Referrals: Chad,Catracho Ruth MD [Primary Care Provider] - Time of Disposition: 13:40 Quality NIHSS Nursing Documentation ED NIHSS nursing documentation: reviewed/agree
[2024-07-19 12:48] VITALS: BP 127/84; PULSE 74; RESP 16; TEMP 36; O2SAT 100
== END 2024-07-19 13:47 | disposition home or self-care (01) ==
PROVIDERS: Emergency Provider Nurse Practitioner Family; PCP Internal Medicine
DX: S46.011A Strain of muscle(s) and tendon(s) of the rotator cuff of right shoulder, initial encounter (principal); W19.XXXA Unspecified fall, initial encounter; N40.0 Benign prostatic hyperplasia without lower urinary tract symptoms; E03.9 Hypothyroidism, unspecified; K21.9 Gastro-esophageal reflux disease without esophagitis; I10 Essential (primary) hypertension; E78.5 Hyperlipidemia, unspecified; M48.061 Spinal stenosis, lumbar region without neurogenic claudication; L40.9 Psoriasis, unspecified; Z86.718 Personal history of other venous thrombosis and embolism; Z85.820 Personal history of malignant melanoma of skin; Z85.46 Personal history of malignant neoplasm of prostate
CPT/HCPCS: 73030; 99213; G0463